=== PATIENT | male | born 2000 | race Caucasian/White ===

== ENCOUNTER 2020-07-09 19:47 | Emergency (ER) | payer OTHER ==
[~2020-07-09] VITALS: Ht 188 cm; Wt 92.5 kg
--- NOTE | 2020-07-09 20:54 | REPVR ---
PROCEDURE INFORMATION: Exam: XR Right Hand Exam date and time: 07/09/2020 8:30 PM Age: 20 years old Clinical indication: Pain; Hand; Right; Additional info: Punched a door TECHNIQUE: Imaging protocol: XR Right hand. Views: 3 or more views. COMPARISON: No relevant prior studies available. FINDINGS: Bones/joints: Normal. Soft tissues: Soft tissue swelling dorsal aspect of the hand. IMPRESSION: Soft tissue swelling dorsal aspect of the hand. No fracture. Electronically signed by: Tyler Long On 07/09/2020 20:55:00 PM
[2020-07-09 21:36] VITALS: BP 138/69
== END 2020-07-09 21:38 | disposition home or self-care (01) ==
LOC: M ED 19:47
DX: S60.221A Contusion of right hand, initial encounter (principal); W22.8XXA Striking against or struck by other objects, initial encounter; Y92.009 Unspecified place in unspecified non-institutional (private) residence as the place of occurrence of the external cause; Y93.9 Activity, unspecified; Y99.9 Unspecified external cause status; F17.200 Nicotine dependence, unspecified, uncomplicated

== ENCOUNTER 2020-08-19 21:48 | Emergency (ER) | payer OTHER ==
[~2020-08-19] VITALS: Ht 188 cm; Wt 91.3 kg
--- NOTE | 2020-08-19 23:38 | REPVR ---
PROCEDURE INFORMATION: Exam: CT Head Without Contrast Exam date and time: 08/19/2020 11:22 PM Age: 20 years old Clinical indication: Injury or trauma; Fall; Blunt trauma (contusions or hematomas); Additional info: Posterior head trauma TECHNIQUE: Imaging protocol: Computed tomography of the head without contrast. Radiation optimization: All CT scans at this facility use at least one of these dose optimization techniques: automated exposure control; mA and/or kV adjustment per patient size (includes targeted exams where dose is matched to clinical indication); or iterative reconstruction. COMPARISON: No relevant prior studies available. FINDINGS: Brain: Normal. No hemorrhage. Unremarkable white matter. No mass effect. Cerebral ventricles: No ventriculomegaly. Bones/joints: Unremarkable. No acute fracture. Paranasal sinuses: Visualized sinuses are unremarkable. No fluid levels. Mastoid air cells: Visualized mastoid air cells are well aerated. Soft tissues: Right posterior scalp marci. IMPRESSION: No acute intracranial abnormality. Electronically signed by: Nimesh Calixto On 08/19/2020 23:39:23 PM
[2020-08-20 00:11] VITALS: BP 144/87
== END 2020-08-20 00:20 | disposition home or self-care (01) ==
LOC: M ED 21:48
DX: S01.01XA Laceration without foreign body of scalp, initial encounter (principal); W01.10XA Fall on same level from slipping, tripping and stumbling with subsequent striking against unspecified object, initial encounter; Y92.098 Other place in other non-institutional residence as the place of occurrence of the external cause; Y93.89 Activity, other specified; Y99.9 Unspecified external cause status; F17.200 Nicotine dependence, unspecified, uncomplicated; Z91.040 Latex allergy status